=== PATIENT | male | born 1950 | race Caucasian/White ===

== ENCOUNTER 2020-07-06 12:51 | Outpatient (CLI) | payer MEDICARE, SELFPAY ==
--- NOTE | ~2020-07-06 | MR_ITS ---
EXAMINATION: MR shoulder RT wo con DATE: 07/06/2020 13:56 INDICATION: Right shoulder pain. TECHNIQUE: Magnetic resonance imaging (MRI) of the right shoulder was performed without intravenous c ontrast. Sequences included axial PD-weighted FS FSE, coronal oblique PD-weighted FS FSE and T2-weigh tari FS FSE, and sagittal oblique T2-weighted FS FSE and T1-weighted FSE. COMPARISON: Right shoulder radiographs 06/29/2020 FINDINGS: Coracoacromial arch: The acromion undersurface is curved in morphology with anterior hook (type III). There is severe acro mioclavicular joint osteoarthritis including inferiorly directed osteophytes. There is mild subacromi al/subdeltoid bursitis. Rotator cuff: There is a full-thickness tear of anterior supraspinatus tendon measuring 12 mm anterior to posterior by 3.2 cm proximal to distal. There is articular sided partial-thickness tear of posterior supraspin atus tendon and infraspinatus tendon measuring 13 mm anterior to posterior by 2.9 cm proximal to dist al by 80% tendon thickness. Teres minor tendon is normal. There is a near full-thickness tear of subs capularis tendon. There is moderate fatty atrophy of superior aspect of subscapularis muscle belly. T here is degenerative cystic change in greater tuberosity. Biceps tendon and glenoid labrum: Biceps tendon is in bicipital groove. The intra-articular biceps tendon is not well evaluated. There is degeneration of the superior glenoid labrum without well-defined tear. Fluid: There is a small glenohumeral joint effusion. Bones/cartilage: The glenoid cartilage and humeral head cartilage are unremarkable. IMPRESSION: 1. Full-thickness rotator cuff tear. 2. Severe acromioclavicular joint osteoarthritis. 3. Mild subacromial/subdeltoid bursitis. 4. Small glenohumeral joint effusion. Reviewed, dictated and finalized at location A.
== END 2020-07-06 12:52 | disposition home or self-care (01) ==
PROVIDERS: Visit Provider Orthopaedic Surgery
DX: M75.101 Unspecified rotator cuff tear or rupture of right shoulder, not specified as traumatic (principal); M19.011 Primary osteoarthritis, right shoulder; M75.51 Bursitis of right shoulder; M25.411 Effusion, right shoulder
CPT/HCPCS: 73221

== ENCOUNTER 2022-12-27 13:52 | Outpatient (CLI) | payer MEDICARE, SELFPAY ==
[2022-12-27 15:29] LABS: Albumin Level 5.2 g/dL (3.5-5.1)
[2022-12-27 15:31] LABS: Basophils Absolute Auto 0.1 K/mm3 (0.0-0.1); Basophils Percent Auto 0.7 % (0.2-1.2); Eosinophils Absolute Auto 0.2 K/mm3 (0-0.3); Eosinophils Percent Auto 2.8 % (0-4.4); Hematocrit 44.4 % (42.0-52.0); Hemoglobin 14.5 g/dL (14.0-18.0); Immature Granulocyte Absolute 0.04 K/mm3 (0.00-0.031); Immature Granulocyte Percent A 0.5 % (0-0.5); Lymphocytes Percent Auto 11.8 % (18.3-44.2); Mean Corpuscular HGB Conc 32.7 g/dl (32-36); Mean Corpuscular Hemoglobin 30.2 pg (26-34); Mean Corpuscular Volume 92.5 fl (80-100); Mean Platelet Volume 10.1 fl (7.4-10.4); Monocytes Absolute Auto 0.7 K/mm3 (0.1-0.6); Monocytes Percent Auto 8.6 % (2.6-8.5); Neutrophils Absolute Auto 6.4 K/mm3 (1.3-6.7); Neutrophils Percent Auto 75.6 % (45.5-73.1); Platelet Count Result 166 k/mm3 (150-375); Red Cell Distribution Width 13.2 % (11.5-14.5); White Blood Count 8.5 K/mm3 (4.5-10.0)
[2022-12-27 15:32] LABS: Estimated Glomerular Filt Rate 60; Glucose 106 mg/dL (65-110)
[2022-12-27 15:34] LABS: Hemoglobin A1C 4.8 % (<5.7)
[2022-12-27 16:40] LABS: Urine Cotinine NEGATIVE
== END 2022-12-27 13:53 | disposition home or self-care (01) ==
PROVIDERS: Anesthesiology; Visit Provider Orthopaedic Surgery
DX: M16.11 Unilateral primary osteoarthritis, right hip (principal); Z01.818 Encounter for other preprocedural examination
CPT/HCPCS: 80307; 82040; 82565; 82947; 83036; 85025; 87081

== ENCOUNTER 2023-01-22 00:33 | Day surgery (SDC) | payer MEDICARE, SELFPAY ==
[2022-12-27 14:08] VITALS: BMI 29.2
--- NOTE | 2022-12-27 14:32 | PC.NURSE ---
Report to the Outpatient Waiting Room, entrance under the green pavilion located off [facility], at time __0830 on date _01/22/23 . Planned Procedure Time: _1030 . Time changes happen often and if your time is changed the preop area will call you the afternoon before. - You and your visitor will be asked to self-screen and do not enter if you have any COVID symptoms. - A mask is optional within the hospital at this time. Patients may have clear liquids (water, carbonated beverages, clear teas, apple juice) until 3 hours prior to surgery with a maximum of 20 ounces. - No food from midnight until time of surgery - Infants may have breast milk until 4 hours before surgery, infant formula 6 hours prior to surgery. - Children will be allowed to drink immediately following surgery. If applicable, please bring a bottle or sippy cup to assist with drinking. Juice, water, soda, and popsicles are readily available. For infants on formula, please bring formula the day of surgery. Pacifiers are allowed. Take the following medications with a SIP of water the morning of surgery: ____METOPROLOL DO NOT STOP ANY OF YOUR OTHER PRESCRIPTION MEDICATIONS PRIOR TO SURGERY ?EXCEPT THE FOLLOWING Medications to discontinue per physician __ALL VITAMINS AND SUPPLEMENTS 3 DAYS PRE OP.LAST DOSE 01/18/23 Please no make-up, nail ku[place]i, hairspray, perfume, deodorant, or body powder the day of surgery. No jewelry (including any body piercings) or valuables the day of surgery, leave them at home. Please take a shower or bath the night before, or the morning of, surgery with an antibacterial soap. Wear comfortable, loose fitting clothing. Children are encouraged to wear pajamas. - Jewelry must be removed prior to entering the operating room. Rings and piercings that are not removed may be cut off. - The hospital will not accept responsibility for valuables. - Please leave all valuables, including medications, at home the day of surgery. If you are going home after surgery, a licensed tow motor driver must drive you home. - NO public transportation without another adult if you receive anesthesia. - We recommend that an adult stay with you for 24 hours following discharge. - We also recommend that you do not drive, make important decision, drink alcoholic beverages, or take any drugs that were not prescribed by your health care provider for at least 24 hours after your discharge time. For Pediatric surgeries, we recommend two adults accompany the child home. Follow any additional instructions given to you from your surgeon. If you or anyone in your household have experienced Covid symptoms in the past week, please notify your surgeon or the nurse liaison at the phone number below for possible testing. VERBAL AND WRITTEN instructions given to __PATIENT and asked if any additional questions and then verbalized understanding. Patient advised to call surgeon office or pre surgery nurse liaison [phone] if any additional questions.
[2022-12-27 14:56] VITALS: BP 165/84; PULSE 68; RESP 18; TEMP 36.6; O2SAT 99
[2023-01-22] VITALS (17 sets, daily range): BP systolic 115–175; BP diastolic 36–86; PULSE 57–71; RESP 12–61; TEMP 35.7–36.3; O2SAT 95–100
--- NOTE | ~2023-01-22 | XR_ITS ---
EXAMINATION: XR hip RT min 2V DATE: 01/22/2023 12:52 INDICATION: Postoperative evaluation following right total hip arthroplasty TECHNIQUE: Anteroposterior and lateral views of the right hip were obtained. COMPARISON: 10/24/2022 FINDINGS: Interval placement of a noncemented right total hip arthroplasty which appears well seated in near an atomic alignment. Expected subcutaneous gas in the postoperative bed. No fractures identified. IMPRESSION: 1. Right total hip arthroplasty, negative for postoperative purposes. Reviewed, dictated and finalized at location A. NE ELECTRICIAN APPRENTICE
[2023-01-22] MEDS: LACTATED RINGERS 1,000 ML 30 ML IV CONT ×2 (09:25→12:36)
[2023-01-22] MEDS: ACETAMINOPHEN 500 MG TABLET 1000 MG PO ×2 (09:25→17:18)
[2023-01-22] MEDS: TRANEXAMIC ACID 1,000MG/ISO100 1,000 MG/100 ML BAG 200 MG IVPB (09:25)
--- NOTE | 2023-01-22 09:50 | WPDHPUPDATE1 ---
History and Physical Update Update Date/Time: 01/22/23 09:50 History and Physical has been reviewed, including an updated exam of the patient. There are NO changes in the patient's condition. Risks, benefits, and alternatives have been discussed and questions answered. Patient agrees to proceed with procedure.
--- NOTE | 2023-01-22 10:04 | WPDANESEPPF ---
Anes - Initial Pre Proc Eval Procedure: Operation Date: 01/22/23 10:30 Proposed Procedures p Right Total Hip Arthroplasty - Mk Meza MD Date/Time: 01/22/23 10:04 Surgeon: Mk Meza MD Pre Op Diagnosis: primary oa right hip Patient Data Age: 72 Gender: M Height: 1.63 m Weight: 76.2 kg Last Vital Signs Temp 96.9 F L 01/22/23 09:25 Pulse 57 L 01/22/23 09:25 Resp 14 01/22/23 09:25 BP 152/64 H 01/22/23 09:25 Pulse Ox 97 01/22/23 09:25 O2 Del Method Room Air 01/22/23 09:25 Allergies Allergy/AdvReac Type Severity Reaction Status Date / Time pneumococcal vaccine Allergy Severe Other Verified 01/22/23 09:37 Home Medications Medication Instructions Recorded Confirmed Type metoprolol tartrate 25 mg tablet 20 mg PO BID 05/30/20 01/22/23 History amlodipine 10 mg tablet 10 mg PO HS 12/27/22 12/27/22 History cholecalciferol (vitamin D3) 50 50 mcg PO DAILY 12/27/22 12/27/22 History mcg (2,000 unit) tablet lisinopril 20 mg tablet 20 mg PO DAILY 12/27/22 01/22/23 History omega 2-caq-lbq-fish oil 100 1 cap PO DAILY 12/27/22 12/27/22 History mg-160 mg-1,000 mg capsule (Fish Oil) rosuvastatin 10 mg tablet 10 mg PO HS 12/27/22 12/27/22 History aspirin 81 mg tablet,delayed 81 mg PO BID 14 days #28 tabs 01/22/23 Rx release meloxicam 15 mg tablet 15 mg PO DAILY #30 tabs 01/22/23 Rx oxycodone-acetaminophen 5 mg-325 1 - 2 tablet PO Q4-6H PRN pain #30 01/22/23 Rx mg tablet tabs Patient hx anesthesia problems: none Family hx anesthesia problems: none Results Review: All pre-operative results and documents have been reviewed as part of the pre-operative evaluation. [facility] Past Medical History Medical History Complete tear of right rotator cuff Hypertension Surgical History Surgical History History of heart surgery (~06/03/19) heart valve implant Family History Family History Father Lung cancer Social History Social History Smoking status: Never smoker Additional smoking assessment comments: DENIES ANY FORM OF TOBACCO USE Alcohol intake: never Substance use: current Substance use type: marijuana Last use: 12/26/22 Lack of Transportation: No Lack of Food: Never True Current Housing: I Have Housing Concerned About Future Housing: No Difficulty Paying Gas/Electric Bills: No Difficulty Paying for Meds: No Currently Unemployed: No Education: Trade/Vocational Certificate Difficulty w/ Childcare or Family Care: No Living arrangements: alone Spiritual care concerns: No Anes - Eval Final PreProcedure Day of Procedure 01/22/23 10:04 Patient weight: normal Heart: regular rate and rhythm Lungs: clear to auscultation Airway: Mallampati scale class II Neurological: alert and oriented Last oral intake: >/= 8 hours ASA classification: III Emergent: no Anesthetic plan: proceed Anesthesia type and monitoring: general ETT and standard monitoring Results Review: All pre-operative results and documents have been reviewed as part of the pre-operative evaluation. Informed Consent: The patient's anesthetic plan and its attendant risks and benefits were discussed with the patient/family/POA. Questions were solicited and answers provided to the satisfaction of the patient/family/POA.
[2023-01-22] MEDS: ceFAZolin 2 GM/D5W 50 ML 2 GM/50 ML BAG IVPB ×2 (10:16→17:25)
[2023-01-22] MEDS: fentaNYL CITRATE INJ (*CRX) 100 MCG/2 ML VIAL 25 MCG IV PUSH ×4 (12:51→13:05)
--- NOTE | 2023-01-22 14:04 | W.PM.PROC2 ---
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 Post-op Diagnosis Same Procedure Performed Right Total Hip Arthroplasty Surgeon Mk Meza MD Debrander Maritza Skaggs PA-C Anesthesia General Findings Collapse of the femoral head mildly. Specimen sent to pathology. Good bone quality. Small stature. Femur flexibly reamed. Description of Procedure The patient was given preoperative antibiotics. A general anesthetic was administered. The patient was carefully placed in the lateral decubitus position on the PEG board. The shoulders and hips were carefully positioned for component and leg length positioning reference. The hip was prepped and draped in the usual sterile fashion. A longitudinal incision was created over the posterior aspect of the greater trochanter. Careful dissection was brought down through the deep fascia with electrocautery. A minimally invasive optimized posterior approach to the hip was performed. The short external rotators and capsule were taken down in an L-shaped capsulotomy. The tissue was tagged for later repair using number 2 high strength suture. The femoral neck was measured and taken in situ. The femoral head was removed. The acetabulum was carefully exposed. The inferior capsule was released. The labrum was resected. The acetabulum was sequentially reamed to the intended cup size. The cup was impacted into position with excellent press-fit. Typical anatomic landmarks, including the bony contact points as well as the inferior transverse acetabular ligament were used to confirm cup positioning with preoperative templating. Attention was turned to the femur, which was carefully exposed. The hip was reamed and then broached sequentially. Excellent press-fit was obtained with the broach. The hip was trialed. Measurements were utilized, including the lesser trochanter as well as the center of the femoral head and the tip of the trochanter, and excellent assessment of the offset and leg lengths were confirmed. The real component was impacted into position. Trialing confirmed appropriate leg length and offset with soft tissue balancing as well apparent feel of the leg, both at the knee and the heel. Soft tissues were assessed using the the iliotibial band. Reduction of the posterior capsule and external rotators were also used as a secondary assessment. The hip was copiously irrigated with pulsatile lavage antibiotic solution periodically throughout the procedure. The real components were then assembled and reduced. The hip was stable throughout typical maneuvers, including extension, external rotation to 70 degrees, the position of sleep as well as flexion to 90 degrees with internal rotation past 35 degrees. The shake test confirmed stability without impingement. Osteophytes were removed as necessary. The short external rotators and capsule were repaired back to the posterior trochanter through drill holes. The deep fascia was repaired with running number 2 Quill suture, followed by 0 Stratafix suture and 2-0 Stratafix suture in the dermis. Steri-Strips were placed on the skin, followed by a sterile silver occlusive dressing. There were no complications. Meticulous hemostasis was maintained with the AquaMantys device. The patient was brought to the recovery room in stable condition. There were no complications. Physician railway yard assistant, Maritza Skaggs PA-C, required for surgery; including patient positioning, draping, tissue retraction, maintaining instrument position, hip dislocation/ relocation, wound closure, and dressing placement. Implants The Accolade II hip stem, 127 degree size 3 , was utilized with excellent press-fit. The 50 mm Trident II acetabular component was impacted with excellent press-fit stability. The +0, [36] mm Biolox ceramic femoral head was utilized. Estimated Blood Loss -100.0 Drains No Packing No Pa
[2023-01-22] MEDS: ONDANSETRON INJ 4 MG/2 ML VIAL IV PUSH (14:54)
--- NOTE | 2023-01-22 17:00 | ADMGEN ---
This patient, Omar Carter, was admitted to [facility] Surg Room 310-01. Patient/family oriented to hospital policies and general routines including ID bracelet, bed and alarms, visiting hours, pain management, procedures, bathroom and other care routines, personal items, smoking policy, room service/diet, and visiting hours. Information on how to activate the Rapid Response Team has been discussed. Patient/Family are encouraged to report perceived risks to care and to ask questions if they do not understand what they are told or what they should do.
[2023-01-22] MEDS: SENNA/DOCUSATE SODIUM TABLET 2 TAB PO (17:18)
[2023-01-22] MEDS: MELOXICAM 7.5 MG TABLET PO (17:19)
[2023-01-22] MEDS: ASPIRIN 81 MG ENTERIC TABLET PO (17:25)
[2023-01-22] MEDS: METOPROLOL TARTRATE 25 MG TABLET PO (17:28)
[2023-01-22] MEDS: amLODIPine BESYLATE 5 MG TABLET 10 MG PO (21:54)
[2023-01-22] MEDS: ROSUVASTATIN 10 MG TABLET PO (21:55)
[2023-01-22] MEDS: FAMOTIDINE 20 MG TABLET PO (21:55)
[2023-01-23] VITALS: BP 127/67; PULSE 61; RESP 20; TEMP 36.1; O2SAT 100
[2023-01-23] MEDS: ACETAMINOPHEN 500 MG TABLET 1000 MG PO (00:10)
[2023-01-23] MEDS: ceFAZolin 2 GM/D5W 50 ML 2 GM/50 ML BAG IVPB ×2 (02:40→09:22)
[2023-01-23 06:00] VITALS: BP 178/72; PULSE 73; RESP 16; TEMP 36.6; O2SAT 98
[2023-01-23 06:08] LABS: Basophils Percent Auto 0.2 % (0.2-1.2); Eosinophils Percent Auto 0.1 % (0-4.4); Hematocrit 40.2 % (42.0-52.0); Hemoglobin 13.1 g/dL (14.0-18.0); Immature Granulocyte Absolute 0.09 K/mm3 (0.00-0.031); Immature Granulocyte Percent A 0.7 % (0-0.5); Lymphocytes Absolute Auto 0.81 K/mm3 (0.9-3.2); Lymphocytes Percent Auto 6.1 % (18.3-44.2); Mean Corpuscular HGB Conc 32.6 g/dl (32-36); Mean Corpuscular Hemoglobin 30.1 pg (26-34); Mean Corpuscular Volume 92.4 fl (80-100); Mean Platelet Volume 10.4 fl (7.4-10.4); Monocytes Percent Auto 7.3 % (2.6-8.5); Neutrophils Absolute Auto 11.4 K/mm3 (1.3-6.7); Neutrophils Percent Auto 85.6 % (45.5-73.1); Platelet Count Result 157 k/mm3 (150-375); Red Blood Count 4.35 M/mm3 (4.6-6.20); Red Cell Distribution Width 13.6 % (11.5-14.5); White Blood Count 13.3 K/mm3 (4.5-10.0)
[2023-01-23] MEDS: lisinopriL 20 MG TABLET PO (06:15)
[2023-01-23] MEDS: METOPROLOL TARTRATE 25 MG TABLET PO (06:15)
[2023-01-23 06:19] LABS: Anion Gap 9 mmol/L (8-16); Blood Urea Nitrogen 23 mg/dL (9-20); Calcium 9.5 mg/dL (8.4-10.2); Carbon Dioxide 23 mmol/L (22-30); Chloride 103 mmol/L (98-107); Estimated CRCL calculation 39 ml/min; Estimated Glomerular Filt Rate 54; Glucose 112 mg/dL (65-110); Potassium 5.2 mmol/L (3.4-5.0); Sodium 135 mmol/L (137-145)
--- NOTE | 2023-01-23 08:28 | PM.DS ---
DS: Admitting Diagnosis Discharge Date 01/23/23 Admitting Diagnosis OA Right hip DS: Discharge Diagnosis Discharge Diagnosis (1) Status post total hip replacement, right: Code(s): Z96.641 - Presence of right artificial hip joint Status: Acute Assessment and Plan: Postop day 1: Total hip arthroplasty. Patient tolerated procedure well. No complications. Pain manageable with pain medication. No numbness or tingling. We had a lengthy discussion regarding postoperative wound care, limitations, expectations, and exercises. Patient shows good understanding. Patient has had initial physical therapy and is tolerating it well. DVT prophylaxis: 81 mg baby aspirin b.i.d. for 14 days. Short frequent walks. Pain medication: Percocet. Meloxicam. Patient has followup appointment with Dr. Meza in 3 weeks DS: Summary Hospital Course Reason for hospitalization: Total hip arthroplasty Hospital Course: Patient tolerated procedure well. Has had initial PT/OT and made good progress. Status at Discharge Functional status at discharge: uses cane/walker Overall status at discharge: patient is progressing back to baseline Time Spent with Patient Time attestation: Total time spent providing and/or coordinating discharge services: Exam Narrative: 72 y/o male. Resting comfortably in bed. Wearing compression socks bilaterally. Dressing dry and intact with no drainage. Mild swelling. No ecchymosis. No erythema. No hematoma. Range of motion limited due to pain. Calf nontender. Thigh nontender. Neurologic status intact. No varicosities. Distal pulses palpable. DS: Data Data Completed and Pending Pending studies at discharge: Pending at discharge 01/22/23 11:05 Surgical [PTH] Routine Labs on day of discharge: Labs from last 24 hours 01/23/23 01/22/23 05:55 08:59 WBC 13.3 H RBC 4.35 L Hgb 13.1 L Hct 40.2 L MCV 92.4 MCH 30.1 MCHC 32.6 RDW 13.6 Plt Count 157 MPV 10.4 Immature Gran % (Auto) 0.7 H Neut % (Auto) 85.6 H Lymph % (Auto) 6.1 L [place] % (Auto) 7.3 Eos % (Auto) 0.1 Baso % (Auto) 0.2 Lymph # (Auto) 0.81 L [place] # (Auto) 1.0 H Eos # (Auto) 0.0 Baso # (Auto) 0.0 Abs Immat Gran (auto) 0.09 H Absolute Neuts (auto) 11.4 H Absolute Nucleated RBC 0.0 Nucleated RBC % 0.0 Sodium 135 L Potassium 5.2 H Chloride 103 Carbon Dioxide 23 Anion Gap 9 BUN 23 H Creatinine 1.30 Estim Creat Clear Calc 39 Estimated GFR 54 L Glucose 112 H Calcium 9.5 Blood Type O Positive Antibody Screen Negative Discharge Plan Discharge Patient Disposition: Home, Self-Care Discharge Instructions: See green instruction sheets Patient Instructions: Joint Replacement Surgery (DC) Stand Alone Forms: General Discharge Instructions Follow-up/Referrals: Maritza Skaggs PA [Physician Project Analyst] - Discharge Medications: New meloxicam 15 mg tablet 15 mg PO DAILY Qty: 30 0RF Rx Instructions: Cut in half. Take 1/2 in morning and 1/2 at night. Take with food. Stop if stomach upset. aspirin 81 mg tablet,delayed release (DR/EC) 81 mg PO BID 14 Days Qty: 28 0RF oxycodone-acetaminophen 5-325 mg tablet 1 - 2 tablet PO Q4-6H MDD 6 PRN (Reason: pain) Qty: 30 0RF Continued metoprolol tartrate 25 mg tablet 20 mg PO BID Fish Oil 100-160-1,000 mg capsule 1 cap PO DAILY rosuvastatin 10 mg tablet 10 mg PO HS lisinopril 20 mg tablet 20 mg PO DAILY amlodipine 10 mg tablet 10 mg PO HS cholecalciferol (vitamin D3) 50 mcg (2,000 unit) Tablet 50 mcg PO DAILY
[2023-01-23] MEDS: ASPIRIN 81 MG ENTERIC TABLET PO (09:22)
[2023-01-23] MEDS: CHOLECALCIFEROL 1,000 UNITS TABLET 2000 UNITS PO (09:22)
[2023-01-23] MEDS: OMEGA 3 POLYUNSAT FATTY ACIDS 1 GM CAP PO (09:22)
[2023-01-23] MEDS: MELOXICAM 7.5 MG TABLET PO (09:22)
[2023-01-23] MEDS: FAMOTIDINE 20 MG TABLET PO (09:23)
== END 2023-01-23 12:00 | disposition home or self-care (01) ==
LOC: ANHSURGERY 08:27 → ANH3MEDSUR 16:56
PROVIDERS: Physician Assistant Surgical; Visit Provider Orthopaedic Surgery
PROC: (CPT 27130; principal; 2023-01-22 10:30)
DX: M16.11 Unilateral primary osteoarthritis, right hip (principal); I10 Essential (primary) hypertension; E78.00 Pure hypercholesterolemia, unspecified; Z95.4 Presence of other heart-valve replacement; Z79.82 Long term (current) use of aspirin; F12.90 Cannabis use, unspecified, uncomplicated
CPT/HCPCS: 27130; 36415; 73502; 80048; 80307; 82040; 82565; 82947; 83036; 85025; 86850; 86900; 86901; 87081; 88307; 88311; 97110; 97161; 97165; A9270; C1769; C1776; J0171; J0690; J1100; J1170; J1885; J2250; J2270; J2405; J2704; J2795; J3010; J7120

== ENCOUNTER 2023-02-06 13:24 | Outpatient (CLI) | payer MEDICARE, SELFPAY ==
--- NOTE | ~2023-02-06 | XR_ITS ---
EXAMINATION: XR hip RT 2V w AP pelvis INDICATION: Aftercare following joint replacement surgery TECHNIQUE: AP view the pelvis and two views of the right hip are obtained on four radiographs. COMPARISON: 01/22/2023 FINDINGS: Bone alignment is normal. There is no fracture. There are changes of right hip arthroplasty . No hardware failure or loosening are identified there is mild osteoarthritis of the left hip. Calci fied atherosclerosis is noted. There is a phlebolith of the right pelvis. IMPRESSION: 1. Right hip arthroplasty without significant change or acute findings. Reviewed, dictated and finalized at location B. AND BEVERAGE OPERATIONS MANAGER
== END 2023-02-06 13:25 | disposition home or self-care (01) ==
PROVIDERS: Visit Provider Orthopaedic Surgery
DX: Z47.1 Aftercare following joint replacement surgery (principal)
CPT/HCPCS: 73502

== ENCOUNTER 2023-10-14 13:04 | Outpatient (CLI) | payer MEDICARE, SELFPAY ==
--- NOTE | ~2023-10-14 | XR_ITS ---
XR hip RT 2V w AP pelvis 10/14/2023 13:25 Indication: Right posterior hip pain. Procedure: Right hip pain Comparison: Comparison to multiple prior studies sequentially, with oldest reviewed study dated 01/19. Findings: There is a right total hip arthroplasty. No fracture or traumatic malalignment. Moderate eric mbar spondylosis. There is osteoarthritis of the left hip with subchondral sclerosis, suspicious for avascular necrosis. No acute fracture. Pelvic rings are intact. Impression: 1: No acute fracture. 2: Mild-moderate osteoarthritis of the left hip with possible avascular necrosis of the left femoral head. Reviewed, dictated and finalized at location B. Impression: 1: No acute fracture. 2: Mild-moderate osteoarthritis of the left hip with possible avascular necros is of the left femoral head.
== END 2023-10-14 13:05 | disposition home or self-care (01) ==
PROVIDERS: Visit Provider Orthopaedic Surgery
DX: Z96.641 Presence of right artificial hip joint (principal); M16.11 Unilateral primary osteoarthritis, right hip
CPT/HCPCS: 73502

== ENCOUNTER 2024-10-29 13:33 | Outpatient (CLI) | payer MEDICARE, SELFPAY ==
--- NOTE | ~2024-10-29 | MR_ITS ---
EXAMINATION: MR lumbar spine wo con DATE: 10/29/2024 14:13 INDICATION: Spinal stenosis, lumbar region without neurogenic claudication. TECHNIQUE: Magnetic resonance imaging (MRI) of the lumbar spine was performed without intravenous contrast. Sequences included sagittal T2-weighted FSE, sagittal T2-weighted FS FSE, sagittal T1-weighted FSE, and axial T2-weighted FSE. COMPARISON: None. FINDINGS: There is 5 degrees levocurvature of lumbar spine. There is 4 mm anterolisthesis of L4 on L5. There is mild chronic anterior wedging of T11 and T12 vertebral bodies. There are Schmorl's nodes at multiple levels. There is mildly decreased disc height at L1-L2 and L2-L3 and moderately decreased disc height at L3-L4, L4-L5, and L5-S1. There is ligamentum flavum hypertrophy at the disc levels from L1-L2 through L5-S1. The distal spinal cord signal intensity is normal. The conus medullaris is at L1-L2. The following disc levels are specifically discussed: L1-L2: The disc is bulging and has an annular fissure. There is severe bilateral facet joint osteoarthritis. There is mild bilateral neural foraminal stenosis. There is mild central canal stenosis. L2-L3: The disc is bulging and has an annular fissure. There is severe bilateral facet joint osteoarthritis. There is mild bilateral neural foraminal stenosis. There is mild central canal stenosis. L3-L4: The disc is bulging. There is severe bilateral facet joint osteoarthritis. There is moderate right and mild left neural foraminal stenosis. There is mild central canal stenosis. L4-L5: The disc is bulging and has an annular fissure. There is severe bilateral facet joint osteoarthritis. There is a 4 mm synovial cyst from right facet joint in the epidural space. There is mild right and moderate left neural foraminal stenosis. There is moderate central canal stenosis. L5-S1: The disc is bulging. There is severe bilateral facet joint osteoarthritis. There is mild right and moderate left neural foraminal stenosis. There is mild central canal stenosis. IMPRESSION: 1. Moderate lumbar spondylosis. Reviewed, dictated and finalized at location E.
--- OUTSIDE RECORDS SUMMARY | 2024-10-29 15:20 | XMS_ITS | Clinical Summary ---
Author Organization [facility] Address [address] [place] [address] Care Team Providers Care Speedometer Mechanic Name Role Phone Tani Cervantes MD Unavailable [phone] Lauren Castellano MD Primary Care Provider [phone] Allergies Active Allergy Reactions Criticality Noted Date Comments Pneumococcal Vaccine Unknown 07/02/2017 Medications omega 2-phj-nbr-fish oil 1,000 mg (120 mg-180 mg) capsule Take 1 capsule (1,000 mg total) by mouth daily 90 capsule 3 07/03/2019 Active cholecalciferol (VITAMIN D-3) 1,000 unit capsule Take 1 capsule (1,000 Units total) by mouth daily Active aspirin 81 mg enteric coated tablet Take 1 tablet (81 mg total) by mouth daily 30 tablet 09/29/2021 Active hydroCHLOROthia zide (HYDRODIURIL) 25 mg tablet Take 1 tablet (25 mg total) by mouth daily 07/06/2022 Active lisinopriL (PRINIVIL,ZESTR IL) 20 mg tablet Take 1 tablet (20 mg total) by mouth daily 07/17/2022 Active amLODIPine (NORVASC) 10 mg tablet TAKE 1 TABLET(10 MG) BY MOUTH DAILY 90 tablet 3 07/01/2023 Active metoprolol tartrate (LOPRESSOR) 25 mg immediate release tablet TAKE 1 TABLET(25 MG) BY MOUTH TWICE DAILY 180 tablet 3 06/23/2024 Active rosuvastatin (CRESTOR) 10 mg tablet TAKE 1 TABLET(10 MG) BY MOUTH DAILY 90 tablet 3 07/06/2024 Active Active Problems Problem Noted Date Diagnosed Date Preop cardiovascular exam 09/30/2021 Assessment & Plan (09/30/2021 11:48 AM CDT): He is currently doing quite well with respect to his heart disease. He is active without any symptoms. As such, I believe he can be cleared for his noncardiac surgery if his current EKG is unchanged. CAD in moapa artery 09/30/2021 Assessment & Plan (10/01/2023 4:36 PM CDT): Doing well without angina. The patient is aware of the need for Secondary prevention through aggressive CV risk factor modifications to include: blood pressure control, LDL control, daily exercise (per guidelines), and achieving and maintaining ideal body weight, etc. Assessment & Plan (09/28/2022 12:30 PM CDT): Doing well without angina. The patient is aware of the need for Primary prevention through aggressive CV risk factor modifications to include: blood pressure control, LDL control, daily exercise (per guidelines), and achieving and maintaining ideal body weight, etc. Assessment & Plan (09/30/2021 11:55 AM CDT): He has asymptomatic two-vessel coronary disease with 50% disease in the proximal RCA, OM1, and distal LAD. He also has an 80% RCA lesion just above the RPDA. Will continue guideline-directed medical therapy and aggressive CV risk factor modifications. For some reason, he discontinued aspirin and Lipitor. I have asked him to restart his aspirin 81 mg daily and Lipitor 10 mg daily with repeat FLP/AST in 3 months. The patient is aware of the need for Secondary prevention through aggressive CV risk factor modifications to include: blood pressure control, LDL control, daily exercise (per guidelines) and achieving and maintaining ideal body weight, etc. S/P TAVR (transcatheter aortic valve replacement ) 09/30/2021 Assessment & Plan (10/01/2023 4:38 PM CDT): Doing well with good TAVR function, He knows about and uses SBE prophylaxis when needed. Emphasized need for good dental hygiene. Assessment & Plan (09/28/2022 12:31 PM CDT): Doing well. He is aware of SBE prophylaxis. Assessment & Plan (09/30/2021 11:50 AM CDT): Has improved following the TAVR. We discussed at length the need for SBE prophylaxis as well as proper dental hygiene. He is not allergic to any antibiotics and he was told to use amoxicillin prior to dental work, to be prescribed by us, his PCP, or his dentist. GCA (giant cell arteritis) 09/30/2021 Assessment & Plan (10/01/2023 4:37 PM CDT): Per PCP. Seems quiescent at present. Assessment & Plan (09/28/2022 12:31 PM CDT): No recurrences. Assessment & Plan (09/30/2021 11:54 AM CDT): Per PCP, seems quiescent at present. Graves' disease 09/30/2021 Assessment & Plan (09/28/2022 12:31 PM CDT): Per PCP. Says he is euthyroid at present. Assessment & Plan (09/30/2021 11:54 AM CDT): Per PCP. Nonrheumatic aortic valve stenosis 05/29/2019 Essential hypertension 05/26/2019 Assessment & Plan (10/01/2023 4:37 PM CDT): The blood pressure has been under good control on current medications which will be continued. The patient is aware of the need for continued monitoring. Monitor home BP/Keep diary and bring to OV. Call if average BP >140/90 mmHg. Low sodium diet. Assessment & Plan (09/28/2022 12:26 PM CDT): The blood pressure has been under good control on current medications which will be continued. The patient is aware of the need for continued monitoring. Monitor home BP/Keep diary and bring to OV. Call if average BP >140/90 mmHg. Low sodium diet. Assessment & Plan (09/30/2021 11:52 AM CDT): The patient is aware of the need for continued monitoring. Monitor home BP/Keep diary and bring to OV. Call if average BP >140/90 mmHg. Low sodium diet. Dyslipidemia 05/26/2019 Assessment & Plan (10/01/2023 4:36 PM CDT): The LDL is well controlled on current pharmacotherapy which will be continued. Assessment & Plan (09/28/2022 12:30 PM CDT): Only takes Lipitor on and off. He needs to be compliant with LDL lowering medications. He had hip and shoulder injuries, but the pains were better off of Lipitor. Given moapa CAD, aggressive LDL lowering is warranted. Will try Crestor 10 mg every day. Recheck FLP/AST in 3 mos. Assessment & Plan (09/30/2021 11:52 AM CDT): His LDL has been at goal on Crestor which he will continue. 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 He says no FU in some time. Assessment & Plan (09/28/2022 12:25 PM CDT): Per PCP. Had Estella procedure 10 yrs ago. Assessment & Plan (09/30/2021 11:54 AM CDT): Per PCP and GI. Encounters Date Type Department Care Team Description 09/16/2024 Telephone [facility] Cardiology [address] [address], [place] [address] Boone Elias MD from Last 3 Months Surgical History Surgery Date Site/Laterality Comments UPPER GASTROINTESTINAL ENDOSCOPY Medical History Medical History Date Comments Faustin esophagus GERD (gastroesophageal reflux disease) Hypertension Graves disease Ischemic optic neuropathy of both eyes Giant cell arteritis syndrome Bi opsy inconclusive, followed by Fannie Ruiz MD at [facility] Hyperlipidemia Family History Medical History Relation Name Comments No Known Problems Father No Known Problems Mother Relation Name Status Comments Father Mother Social History Tobacco Use Types Packs/Day Years Used Date Smoking Tobacco: Never Smokeless Tobacco: Never Alcohol Use Standard Drinks/Week Comments No 0 (1 standard drink = 0.6 oz pur e alcohol) Sex and Gender Information Value Date Recorded Sex Assigned at Not on file Legal Sex Male 3:07 AM CUPROUS CHLORIDE HELPER Gender Identity Not on file Sexual Orientation Not on file Obstetrics History Last Filed Vital Signs Vital Sign Reading Time Taken Comments Blood Pressure 130/70 10/01/2023 4:17 PM CDT sandra e Pulse 62 10/01/2023 4:12 PM CDT Temperature 36.6 C (97.8 F) 06/04/2019 12:00 PM CDT Respiratory Rate 18 06/04/2019 12:00 PM CDT Oxygen Saturation 98% 10/01/2023 4:12 PM CDT Inhaled Oxygen Concentration - - Weight 79 kg (174 lb 2.6 oz) 10/01/2023 4:12 PM CDT Height 162.6 cm (5' 4) 10/01/2023 4:12 PM CDT Body Mass Index 29.9 10/01/2023 4:12 PM CDT Plan of Treatment Health Maintenance Due Date Last Done Comments Colon Cancer Screening-Colonoscopy 1950 Depression Screening 1950 Hepatitis C Screening 1950 Hepatitis B Screening 1968 Zoster Vaccine (1 of 2) 2000 Well Visit 65+ 12/23/2015 Pneumococcal vaccine 65+ (2 of 2 - PCV20 or PCV21) 11/23/2017 11/23/2016 DTaP/Tdap/Td Vaccine (2 - Td or Tdap) 11/10/2018 11/10/2008 Fall Risk Assessment 06/03/2020 06/04/2019 Covid-19 Vaccine (3 - 2024-2 6 season) 2024 07/22/2020, 06/24/2020 Influenza Vaccine (#1) 2024 4, 11/28/2020, 11/18/2019, Additional history exists Abdominal Aortic Aneurysm (A AA) Screen Completed 01/21/2017 Prostate Cancer Screening-PSA Discontinued 12/17/2023 Medical Devices Implanted Type Area Industrial Maintenance Mechanic Device Identifier Shelf Expiration Date Model / Serial / Lot [employer] [id number] Vascade 6/7fr Bioabsorbable Vascular System Compression Collagen - [id number] - [id number] Implanted:Qty: 1 on 06/03/2019 by Tani Cervantes MD at [facility] PDA Closure Device N/A: Heart [employer] 01/29/2021 [id number] / [id number] / [id number] Medtronic Inc Evproplus-26us Valve 26mm Aortic Evolut Pro+ - [id number] - [id number] Implanted:Qty: 1 on 06/03/2019 by Lc Davis MD at [facility] Prosthetic Valve N/A: Heart [employer] 11/20/2019 EVPROPLU S-26US / [id number] / [id number] Procedures Procedure Name Priority Date/Time Associated Diagnosis Comments PSA SCREEN Routine 12/17/2023 2:52 PM CDT CTA ABDOMINAL AORTA AND BILATERAL ILIOFEMORAL RUNOFF Routine 01/21/2017 5:08 PM CUPROUS CHLORIDE HELPER from Last 3 Months or Most Recently Relevant to Health Maintenance Results * PSA screen (12/17/2023 2:52 PM CDT) PSA-Total 1.63 <=6.20 ng/mL Comment: Interpretive Data AGE SEX REFERENCE INTERVAL 0 minutes-150 years Female None 0 minutes-49 years Male None 50-59 years Male 0-3.90 60-69 years Male 0-5.40 70-79 years Male 0-6.20 80-150 years Male 0-6.20 The Natalio PSA Total assay procedure was used. Results from different manufacturers or methods may not be comparable. Serial testing should be performed using the same method. Current interpretive data last revised 21. Blood 12/17/2023 2:52 PM CDT 12/17/2023 7:53 PM CDT us Jennykrishna Tompkins[facility] BLOOD ORDERABLES Fi nal Result [facility] [address] Department [place] [address] * CTA Abdominal Aorta And Bilateral Iliofemoral Runoff (01/21/2017 5:08 PM CUPROUS CHLORIDE HELPER) Anatomical Region Laterality Modality Body Bilateral Computed Tomogra phy 01/21/2017 5:08 PM CUPROUS CHLORIDE HELPER Narrative 01/21/2017 8:[address] angiography of the chest and abdomen HISTORY: Blurred vision. Intermittent diplopia. Vasculitis. TECHNIQUE: Transaxial helical imaging was performed through the chest and abdomen during intravenous administration of 96 mL of Optiray 350. One and 3 mm images were reconstructed. Additionally, the raw 2-dimensional transaxial imaging data was transferred to a 3-D workstation for processing/review. CT angiogram findings: The thoracic and abdominal aorta are normal in caliber. Mild calcified and noncalcified atherosclerotic plaque is noted. There is no wall thickening to suggest a vasculitis. There is no dissection. The great vessels arise unremarkably from the aortic arch without stenoses and without areas of wall thickening to suggest vasculitis. The celiac axis, the SMA, and both renal arteries arise unremarkably without apparent stenoses or wall thickening. The CLAUDY is patent. CT angiogram impression: 1. Normal caliber thoracic and abdominal aorta. No dissection. 2. Mild calcified and noncalcified atherosclerotic plaque involving the thoracic aorta, predominantly at the arch, and the mid to distal abdominal aorta. 3. The great vessels arise normally from the aortic arch without stenoses. The main branch arteries arising from the abdominal aorta also demonstrate no stenoses. 4. No concentric areas of arterial wall thickening to suggest a vasculitis. CT thorax findings: There is a 5 mm pleural-based nodule seen in the lateral basal segment of the left lower lobe, too small to further characterize. Are there prior outside CT studies of the chest or abdomen available for comparison? If none are available and if clinically warranted, a follow-up CT of the chest could be considered in 12 months time per guidelines of the Fleischner Society. The lungs are otherwise essentially clear. No pleural effusions are evident. There are no enlarged hilar or mediastinal lymph nodes evident. A small hiatus hernia is present. CT thorax impression: 1. Tiny left lower lobe pulmonary nodule as discussed. 2. Small hiatus hernia. CT abdomen findings: There are 2 tiny hypodense lesion seen in segments 4B and 7 of the liver, perhaps simply cysts but not fully assessed secondary to their size and the arterial phase only images. Are there prior outside studies for comparison? The spleen, adrenal glands, and pancreas are unremarkable in appearance. There is a probable tiny exophytic cyst seen arising from the posterior aspect of the mid to lower right kidney measuring about 9 mm in diameter, too small to fully characterize. The kidneys are otherwise unremarkable. There are no enlarged retroperitoneal or mesenteric lymph nodes evident. Moderate scattered colonic diverticulosis is noted. There is no evidence of diverticulitis. The included portions of the bowel are otherwise unremarkable in appearance. Prominent degenerative facet changes are present in the mid to lower lumbar spine. CT abdomen impression: 1. Probable small right renal cyst as above. 2. Moderate scattered colonic diverticulosis. 3. Prominent degenerative facet changes in the mid to lower lumbar spine. 4. Suspected small hepatic cysts as above. Electronically signed by: Kadeem Schrader M.D. Radiologist: KADEEM SCHRADER MD Attending: POLA GRAY M.D. Requesting: POLA GRAY M.D. Requesting Requesting ID: [id number] Attending Attending ID: [id number] Completed Time: 01/21/2017 11:08 AM Dictated Time: N/A Transcribed Time: 01/21/2017 2:08 PM Signed by: KADEEM SCHRADER MD on 01/21/2017 2:08 PM Report To 1 ID: Report To 1 Name: , Report To 1 FAX: Report To 2 ID: Report To 2 Name: , Report To 2 FAX: Report To 3 ID: Report To 3 Name: , Report To 3 FAX: NextGen Order #: Procedure Note Miscellaneous, Not In File - 01/21/2017 CT angiography of the chest and abdomen HISTORY: Blurred vision. Intermittent diplopia. Vasculitis. TECHNIQUE: Transaxial helical imaging was performed through the chest and abdomen during intravenous administration of 96 mL of Optiray 350. One and 3 mm images were reconstructed. Additionally, the raw 2-dimensional transaxial imaging data was transferred to a 3-D workstation for processing/review. CT angiogram findings: The thoracic and abdominal aorta are normal in caliber. Mild calcified and noncalcified atherosclerotic plaque is noted. There is no wall thickening to suggest a vasculitis. There is no dissection. The great vessels arise unremarkably from the aortic arch without stenoses and without areas of wall thickening to suggest vasculitis. The celiac axis, the SMA, and both renal arteries arise unremarkably without apparent stenoses or wall thickening. The CLAUDY is patent. CT angiogram impression: 1. Normal caliber thoracic and abdominal aorta. No dissection. 2. Mild calcified and noncalcified atherosclerotic plaque involving the thoracic aorta, predominantly at the arch, and the mid to distal abdominal aorta. 3. The great vessels arise normally from the aortic arch without stenoses. The main branch arteries arising from the abdominal aorta also demonstrate no stenoses. 4. No concentric areas of arterial wall thickening to suggest a vasculitis. CT thorax findings: There is a 5 mm pleural-based nodule seen in the lateral basal segment of the left lower lobe, too small to further characterize. Are there prior outside CT studies of the chest or abdomen available for comparison? If none are available and if clinically warranted, a follow-up CT of the chest could be considered in 12 months time per guidelines of the Fleischner Society. The lungs are otherwise essentially clear. No pleural effusions are evident. There are no enlarged hilar or mediastinal lymph nodes evident. A small hiatus hernia is present. CT thorax impression: 1. Tiny left lower lobe pulmonary nodule as discussed. 2. Small hiatus hernia. CT abdomen findings: There are 2 tiny hypodense lesion seen in segments 4B and 7 of the liver, perhaps simply cysts but not fully assessed secondary to their size and the arterial phase only images. Are there prior outside studies for comparison? The spleen, adrenal glands, and pancreas are unremarkable in appearance. There is a probable tiny exophytic cyst seen arising from the posterior aspect of the mid to lower right kidney measuring about 9 mm in diameter, too small to fully characterize. The kidneys are otherwise unremarkable. There are no enlarged retroperitoneal or mesenteric lymph nodes evident. Moderate scattered colonic diverticulosis is noted. There is no evidence of diverticulitis. The included portions of the bowel are otherwise unremarkable in appearance. Prominent degenerative facet changes are present in the mid to lower lumbar spine. CT abdomen impression: 1. Probable small right renal cyst as above. 2. Moderate scattered colonic diverticulosis. 3. Prominent degenerative facet changes in the mid to lower lumbar spine. 4. Suspected small hepatic cysts as above. Electronically signed by: Kadeem Schrader M.D. Radiologist: KADEEM SCHRADER MD Attending: POLA GRAY M.D. Requesting: POLA GRAY M.D. Requesting Requesting ID: [id number] Attending Attending ID: [id number] Completed Time: 01/21/2017 11:08 AM Dictated Time: N/A Transcribed Time: 01/21/2017 2:08 PM Signed by: KADEEM SCHRADER MD on 01/21/2017 2:08 PM Report To 1 ID: Report To 1 Name: , Report To 1 FAX: Report To 2 ID: Report To 2 Name: , Report To 2 FAX: Report To 3 ID: Report To 3 Name: , Report To 3 FAX: NextGen Order #: Pola Gray MD IMG CT PROCEDURES Edited Re sult - Final from Last 3 Months or Most Recently Relevant to Health Maintenance Insurance [employer]ET[employer] MEDICARE T MEDICARE [facility] MEDIC[facility] Advance Directives For more information, please contact: [phone] * Full Code (Latest Code Status on File) Date Activated Date Inactivated Comments 06/03/2019 8:12 AM 06/04/2019 5:34 PM * Full Code Date Activated Date Inactivated Comments 05/25/2019 9:08 PM 05/28/2019 7:07 PM * Full Code Date Activated Date Inactivated Comments 07/03/2017 8:29 AM 07/03/2017 12:15 PM Care Teams Speedometer Mechanic Relationship Specialty Start Date End Date Lauren Castellano MD [address] [place] [address] PCP - General Internal Medicine 09/29/21 Tani Cervantes MD [address] [place] [address] Consulting Physician Cardiothoracic Surgery 05/28/19
--- OUTSIDE RECORDS SUMMARY | 2024-10-29 15:20 | XMS_ITS | Clinical Summary ---
Author Organization [facility] Address [address] [place] [address] Care Team Providers Care Internal Salesperson Name Role Phone Deirdre Hilario O AND M SUPERVISOR Primary Care Provider [phone] Allergies No known active allergies Medications amLODIPine (NORVASC) 10 MG tablet Take 1 tablet (10 mg total) by mouth daily. Active hydroCHLOROthia zide (HYDRODIURIL) 25 MG tablet Take 1 tablet (25 mg total) by mouth every morning. Active lisinopril (PRINIVIL) 20 MG tablet Take 1 tablet (20 mg total) by mouth daily. Active metoprolol tartrate (LOPRESSOR) 25 MG tablet Take 1 tablet (25 mg total) by mouth 2 (two) times daily. Active rosuvastatin (CRESTOR) 10 MG tablet Take 1 tablet (10 mg total) by mouth nightly at bedtime. Active Resolved Problems Problem Noted Date Diagnosed Date Resolved Date Altered mental status 06/15/20242024 Encounters Date Type Department Care Team Description 09/18/[address] [address] Sharmaine Molina, RMA Consult from Last 3 Months Social History Tobacco Use Types Packs/Day Years Used Date Smoking Tobacco: Never Smokeless Tobacco: Never Tobacco Cessation:Counseling Given: Not Answered [facility] Utilities Answer Date Recorded In the past 12 months has th e electric, gas, oil, or water company threatened to shut off services in your home? Patient unable to answer 06/16/2024 Humiliation, Afraid, Rape, a nd Kick questionnaire Answer Date Recorded Within the last year, have y ou been afraid of your partner or ex-partner? Patient unable to answer 06/16/2024 Within the last year, have y ou been humiliated or emotionally abused in other ways by your partner or ex-partner? Patient unable to answer 06/16/2024 Within the last year, have y ou been kicked, hit, slapped, or otherwise physically hurt by your partner or ex-partner? Patient unable to answer 06/16/2024 Within the last year, have y ou been raped or forced to have any kind of sexual activity by your partner or ex-partner? Patient unable to answer 06/16/2024 Overall Financial Resource Strain (CARDIA) Answe r Date Recorded How hard is it for you to pa y for the very basics like food, housing, medical care, and heating? Patient unable to answer 06/16/2024 Hunger Vital Sign Answer Date Recorded Within the past 12 months, y ou worried that your food would run out before you got the money to buy more. Patient unable to answer 06/16/2024 Within the past 12 months, t he food you bought just didn't last and you didn't have money to get more. Patient unable to answer 06/16/2024 PRAPARE - Transportation Answer Date Re corded In the past 12 months, has l ack of transportation kept you from medical appointments or from getting medications? Patient unable to answer 06/16/2024 In the past 12 months, has l ack of transportation kept you from meetings, work, or from getting things needed for daily living? Patient unable to answer 06/16/2024 Housing Stability Vital Sign Answer Brandon e Recorded In the last 12 months, was t here a time when you were not able to pay the mortgage or rent on time? Patient unable to answer 06/16/2024 In the past 12 months, how m any times have you moved where you were living? 0 06/16/2024 At any time in the past 12 m [facility], were you homeless or living in a correction (including now)? Patient unable to answer 06/16/2024 Sex and Gender Information Value Date Recorded Sex Assigned at Male 06/15/2024 9:14 AM CDT Legal Sex Male 5:52 PM CDT Gender Identity Not on file Sexual Orientation Not on file Last Filed Vital Signs Vital Sign Reading Time Taken Comments Blood Pressure 147/76 06/16/2024 3:38 PM CDT Pulse 73 06/16/2024 3:38 PM CDT Temperature 36.7 C (98.1 F) 06/16/2024 3:38 PM CDT Respiratory Rate 23 06/16/2024 3:38 PM CDT Oxygen Saturation 99% 06/16/2024 3:38 PM CDT Inhaled Oxygen Concentration - - Weight 75.9 kg (167 lb 5.3 oz) 06/16/2024 3:21 A M CDT Height 170.2 cm (5' 7) 06/15/2024 9:26 AM CDT Body Mass Index 26.21 06/15/2024 9:26 AM CDT Plan of Treatment Health Maintenance Due Date Last Done Comments Colorectal Cancer Screening Colonoscopy (10 Years) 1950 DTaP, Tdap and Td Vaccines (1 - Tdap) 1969 Pneumococcal Vaccine: 50+ Years (1 of 1 - PCV) 2000 Zoster Vaccines (1 of 2) 2000 Annual Medicare Wellness Visit 12/23/2015 COVID-19 Vaccine ( season) 2024 11/27/2022, 11/26/2021, 07/07/2021, Additional history exists RSV Immunization or 60+ Years (1 - 1-dose 75+ series) 2025 Hepatitis C Completed 12/26/2016 Meningococcal B Vaccine Aged Out No l onger eligible based on patient's age to complete this topic Meningococcal Vaccine Aged Out No steve theresa eligible based on patient's age to complete this topic RSV Immunizations Under 20 Months Aged Out No longer eligible based on patient's age to complete this topic Insurance [employer] Advance Directives * Full Code (Latest Code Status on File) Date Activated Date Inactivated Comments 06/15/2024 3:58 PM 06/16/2024 7:29 PM Care Teams Internal Salesperson Relationship Specialty Start Date End Date Deirdre Hilario NP [address] [place] [address] PCP - General Nurse Practitioner Family 09/18/24
--- OUTSIDE RECORDS SUMMARY | 2024-10-29 15:21 | XMS_ITS | Patient Health Record ---
Author Organization [facility] see Address [address] [place] [address] [address] [place] [address] Care Team Providers Care Electrician Manager Name Role Phone Gray, Hankhuma Primary Care Provider Jenny Gil Unavailable [phone] Allergies Allergen (clinical drug ingredient) Drug/Non Drug Allergy documented on EMR Reaction Allergy Type Onset Date Status Vaccine product containing Streptococcus pneumoniae antigen (medicinal product) Pneumococcal Vaccines Reaction: set off immune system Drug Allergy 01/05/2022 Active Results Component Value Reference Range Notes CBC w auto diff Reviewed date:12/18/2023 08:47:12 AM Interpretation: Performing Lab:[facility] , [facility]. [facility] [address] Notes/Report: WBC 7.6 3.8-9.9 K/cumm Hgb 15.0 13.0-17.5 g/dL Hct 46.4 38.9-50.3 % Platelet Ct 161 150-400 K/cumm MPV 10.1 9.1-12.3 fL RBC 4.95 4.30-5.80 M/cumm MCV 93.7 81.3-96.4 fL MCH 30.3 27.1-33.3 pg MCHC 32.3 32.3-35.7 g/dL RDW CV 14.1 11.1-14.9 % RDW SD 48.1 35.7-48.1 fL NRBC Abs Auto 0.00 0.00-0.01 K/cumm Comprehensive metabolic pane l (CMP) Reviewed date:12/18/2023 08:47:12 AM Interpretation: Performing Lab:[facility] , [address] [facility]. [facility] [address] Notes/Report: Sodium 141 135-145 mmol/L Plasma Potassium 4.8 3.3-4.9 mmol/L Chloride 101 97-110 mmol/L Total CO2 25 22-32 mmol/L Anion Gap 15 2-15 mmol/L BUN 19 6-25 mg/dL Creatinine 1.06 0.80-1.30 mg/dL Glucose 95 70-199 mg/dL Interpretive Data Fasting glucose >/= 126 mg/dl is diagnostic for diabetes. Fasting is defined as no caloric intake for at least 8 hours. Fasting glucose between 100 mg/dl to 125 mg/dl is diagnostic of prediabetes. In a patient with classic symptoms of hyperglycemia or hyperglycemic crisis, a random glucose >/= 200 mg/dl is diagnostic for diabetes. In the absence of unequivocal hyperglycemia, results should be confirmed by repeat testing. The classification and Diagnosis of Diabetes Diabetes Care 2021; 46: S19-S40. Current interpretive data was last revised 2022. Total Calcium 10.6 8.5-10.3 mg/dL Total Bilirubin 0.6 0.1-1.2 mg/dL Plasma Total Protein 8.1 6.5-8.5 g/dL Albumin 4.9 3.5-5.0 g/dL Alkaline Phosphatase 59 40-130 Units/L ALT 35 7-55 Units/L AST 35 10-50 Units/L Hemoglobin A1C Reviewed date:12/18/2023 08:47:12 AM Interpretation: Performing Lab:[facility] , [address] [place] [address]. [facility] [address] Notes/Report: Hemoglobin A1C 5.4 4.0-5.6 % Est Average Glucose 108 The ADA recommends reporting an estimated Average Glucose (eAG) with all Hemoglobin A1c results using the equation derived from a study of 507 normal and diabetic adults. Minority populations were underrepresented and children were not included. (Diabetes Care 31:6005-0368, 2008). The eAG is not equivalent to a fasting glucose. Lipid Panel Reviewed date:12/18/2023 08:47:12 AM Interpretation: Performing Lab:[facility] , [address] [place] [address]. [facility] [address] Notes/Report: Cholesterol 128 30-199 mg/dL Interpretive Data Ages < or = 19 years Acceptable: <170 mg/dL Borderline high: 170-199 mg/dL High: >or= 200 mg/dL Ages > or = 20 years Desirable: <200 mg/dL Borderline high: 200-239 mg/dL High: >or= 240 mg/dL Literature References: 1. Expert Panel on Integrated Guidelines for Cardiovascular Health and Risk Reduction in Children and Adolescents. Pediatrics 2011;128:S213 2. NCEP Expert Panel. Circulation 2004;110:227 Current Interpretive Data was last revised on 2017. Triglycerides 147 <=149 mg/dL Interpretive Data Ages < or = 9 years Acceptable: <75 mg/dL Borderline high: 75-99 mg/dL High: >or= 100 mg/dL Ages 10 to 20 years Acceptable: <90 mg/dL Borderline high: 90-129 mg/dL High: >or= 130 mg/dL Ages > or = 20 years Desirable: <150 mg/dL Borderline high: 150-199 mg/dL High: 200-499 mg/dL Very high: >or= 499 mg/dL Literature References: 1. Expert Panel on Integrated Guidelines for Cardiovascular Health and Risk Reduction in Children and Adolescents. Pediatrics 2011;128:S213 2. NCEP Expert Panel. Circulation 2004;110:227 Current Interpretive Data was last revised on 2017. HDL Cholesterol 41 >=40 mg/dL Interpretive Data Ages < or = 19 years Acceptable: >45 mg/dL Borderline low: 40-45 mg/dL Low: <40 mg/dL Ages > or = 20 years Desirable: >or= 60 mg/dL Low: <40 mg/dL Literature References: 1. Expert Panel on Integrated Guidelines for Cardiovascular Health and Risk Reduction in Children and Adolescents. Pediatrics 2011;128:S213 2. NCEP Expert Panel. Circulation 2004;110:227 Current Interpretive Data was last revised on 2017. LDL Cholesterol, calculated 62 <=129 mg/dL Interpretive Data Ages < or = 19 years Acceptable: <110 mg/dL Borderline high: 110-129 mg/dL High: >or= 130 mg/dL Ages > or = 20 years Optimal: <100 mg/dL Near optimal: 100-129 mg/dL Borderline high: 130-159 mg/dL High: >160 mg/dL Calculated using the Ke[place] LDL-C estimating equation. This equation was implemented on 2023. Prior to this date LDL-C was estimated using the Friedewald equation. Literature References: 1. Expert Panel on Integrated Guidelines for Cardiovascular Health and Risk Reduction in Children and Adolescents. Pediatrics 2011;128:S213 2. NCEP Expert Panel. Circulation 2004;110:227 3. Jassi Mena et al. ELSA Cardiol. 2019June 18;5(5):540-548. doi: 10.1001/[email or web address].2020.0013 Current Interpretive Data was last revised on 2023. Non-HDL Cholesterol 87 Interpretive Data Ages < or = 19 years Acceptable: <120 mg/dL Borderline high: 120-144 mg/dL High: >145 mg/dL Ages > or = 20 years When triglycerides are >200 mg/dL, Non-HDL cholesterol is a secondary target of therapy with treatment goals that are 30 mg/dL greater than the LDL cholesterol target. Literature References: 1. Expert Panel on Integrated Guidelines for Cardiovascular Health and Risk Reduction in Children and Adolescents. Pediatrics 2011;128:S213 2. NCEP Expert Panel. Circulation 2004;110:227 Current Interpretive Data was last revised on 2017. Cholesterol/HDL ratio 3 PSA, Screen Reviewed date:12/18/2023 08:47:12 AM Interpretation: Performing Lab:[facility] , [address] [place] [address]. [facility] [address] Notes/Report: PSA-Total 1.63 <=6.20 ng/mL Interpretive Data AGE SEX REFERENCE INTERVAL 0 [...] method. Current interpretive data last revised 21. TSH Reflex FT4 Reviewed date:12/18/2023 08:47:12 AM Interpretation: Performing Lab:[facility] , [address] [place] [address]. [facility] [address] Notes/Report: TSH ([place]) 0.76 0.30-4.20 mcIUnit/mL UA, reflex Micro to Culture Reviewed date:12/18/2023 08:47:12 AM Interpretation: Performing Lab:[facility] , [address] [place] [address]. [facility] [address] Notes/Report: Color, Ur Yellow Yellow Clarity, Ur Clear Clear Spec Grav, Ur 1.018 1.003-1.030 pH, Ur 7.0 Interpretive Data ?Urine pH is affected by diet, medications, systemic acid-base disturbances, and renal tubular function. pH may affect urinary stone formation. For example, urine pH below 6.0 may help reduce the tendency for calcium phosphate stones and pH greater than 6.0 may reduce the tendency for uric acid stone formation. Source: [facility] Current Interpretive Data was last revised on 2017 Protein, Ur Ql Trace Negative Glucose, Ur Ql Negative Negative Ketones, Ur Negative Negative Bilirubin, Ur Negative Negative Blood, Ur Negative Negative Urobilinogen, Ur <2.0 <2.0 mg/dL Nitrite, Ur Negative Negative Leukocyte Esterase, Ur Negative Negative UA reflex comment See Below Reflex con ditions for microscopic UA and culture not met. Vit D 25OH Reviewed date:12/18/2023 08:47:12 AM Interpretation: Performing Lab:[facility] , [address] [place] [address]. [facility] [address] Notes/Report: 25 Hydroxy Vitamin D 40 30-80 ng/mL Differential Automated Reviewed date:12/23/2023 01:11:36 PM Interpretation: Performing Lab:[facility] , [address] [place] [address]. [facility] [address] Notes/Report: Neut Abs 5.5 1.5-6.5 K/cumm ImmGran Abs 0.1 0.0-0.1 K/cumm Lymphocyte Abs 1.1 0.8-3.3 K/cumm [place] Abs 0.6 0.2-0.8 K/cumm Eos Abs 0.2 0.0-0.5 K/cumm Baso Abs 0.1 0.0-0.1 K/cumm Neut Pct 72.8 Interpretive Data Percent cell count reference ranges are not reported, since discordance with absolute values may lead to misinterpretation of CBC data. Current Interpretive Data was last revised on 2017. ImmGran Pct 0.8 Interpretive Data Percent cell count reference ranges are not reported, since discordance with absolute values may lead to misinterpretation of CBC data. Current Interpretive Data was last revised on 2017. Lymph Pct 14.5 Interpretive Data Percent cell count reference ranges are not reported, since discordance with absolute values may lead to misinterpretation of CBC data. Current Interpretive Data was last revised on 2017. [place] Pct 8.1 Interpretive Data Percent cell count reference ranges are not reported, since discordance with absolute values may lead to misinterpretation of CBC data. Current Interpretive Data was last revised on 2017. Eos Pct 2.9 Interpretive Data Percent cell count reference ranges are not reported, since discordance with absolute values may lead to misinterpretation of CBC data. Current Interpretive Data was last revised on 2017. Baso Pct 0.9 Interpretive Data Percent cell count reference ranges are not reported, since discordance with absolute values may lead to misinterpretation of CBC data. Current Interpretive Data was last revised on 2017. eGFR Reviewed date:12/23/2023 01:11:36 PM Interpretation: Performing Lab:[facility] , [address] [place] [address]. [facility] [address] Notes/Report: eGFR 75 >=60 mL/min/1.73 m2 Interpretive Data Reference Interval Normal >/= 90 mL/min/1.73m2 Mildly decreased* 60 - 89 mL/min/1.73m2 Mildly to moderately decreased 45 - 59 mL/min/1.73m2 Moderately to severely decreased 30 - 44 mL/min/1.73m2 Severely decreased 15 - 29 mL/min/1.73m2 Kidney Failure < 15 mL/min/1.73m2 *Relative to young adult level Estimated glomerular filtration rate is determined by the 2020 CKD-EPI equation recommended by the National Kidney Foundation (A Unifying Approach to GFR Estimation: Recommendations of the NKF-ASK Task Force on Reassessing the Inclusion of Race in Diagnosing Kidney Disease, JASN 2020). The CKD-EPI equation should not be used for patients with unstable renal function and has not been validated in children and those over 70. Current interpretive data was last reviewed 2020. Reason For Referral No Information Medications Medication SIG (Take, Route, Frequency, Duration) Notes Start Date End Date Status Metoprolol Tartrate 25 MG take 1 tablet (25 mg) by oral route once daily Oral 1 Active Fish Oil 100-160-1,000 mg take 1 capsule by oral route daily Oral 1 *Pick strength-form from [facility] for eRX* Active Rosuvastatin Calcium 10 MG Oral Active Vitamin D3 25 MCG (1000 UT) take 1 capsule by oral route daily Oral 1 Active hydroCHLOROthiazide 25 MG TAKE 1 TABLET( 25 MG) BY MOUTH EVERY DAY Oral Active Lisinopril 20 MG TAKE 1 TABLET(20 MG) BY MOUTH EVERY DAY; Duration: 90 Active Immunizations Vaccine Route Administration Date Status Comme nts COVID- Vaccine mRNA IM Intramuscular 12/17/2023 Administer ed Influenza high dose > 65 [facility] IM Intramuscular 11/09/2016 Administered Influenza high dose > 65 [facility] IM Intramuscular 12/17/2023 Administered Infuenza, trivalent, recombinant, preservative free IM Intramuscular 12/13/2014 Administered Pneumococcal conjugate PCV 13 IM Intramuscular 11/23/2016 Administered Tdap Unknown 11/10/2008 Administered migrated LegPatid= [id number] Date=11/10/2008 Vac= Tdap Social History Tobacco Use: Social History Observation Description Date Details (start date - stop date) Never Smoker NA - NA Tobacco Control (Standard) Question Answer Notes Tobacco use: Nonsmoker Problems Problem Type SNOMED Code ICD Code Onset Dates Problem Status W/U Status Risk Notes Problem Mixed hyperlipidemia (014042695) Mixed hyperlipidemia (E78.2) Active confirmed Problem Essential hypertension (23741033) Essential (primary) hypertension (I10) 06/21/19 06 Active confirmed lv plus echo 2005 Vital Signs Heart Rate 66 /min 12/17/2023 pt states he ch ecks bp at home and always normal Temperature 98 degrees Fahrenheit 12/17/2023 pt sta christi he checks bp at home and always normal Height-cm 165.1 cm 12/17/2023 pt states he ch ecks bp at home and always normal Oximetry 98 % 12/17/2023 pt states he ch ecks bp at home and always normal Blood pressure diastolic 72 mm Hg 12/17/2023 pt states he checks bp at home and always normal Weight-kg 80.36 kg 12/17/2023 pt states he ch ecks bp at home and always normal Height 65 in 12/17/2023 pt states he ch ecks bp at home and always normal Blood pressure systolic 166 mm Hg 12/17/2023 pt s obed he checks bp at home and always normal Weight 177.2 lbs 12/17/2023 pt states he ch ecks bp at home and always normal BMI 29.48 kg/m2 12/17/2023 pt states he ch ecks bp at home and always normal Encounters Encounter Location Date Provider Diagnosis [facility] [address] [place] [address] [place] [address] 12/17/2023 Jenny Gil Essential (primary) hypertension I10 ; Annual wellness visit Z00.00 ; Mixed hyperlipidemia E78.2 ; COVID-19 vaccine administered Z23 and Encounter for immunization Z23 [facility] [address] [place] [address] 12/18/2023 Lauren Castellano Assessments Encounter Date Diagnosis (ICD Code) Assessment Notes Treatment Notes Treatment Clinical Notes Section Notes 12/17/2023 Essential (primary) hypertension (ICD-10 - I10) lv plus echo 200512/17/2023 Annual wellness visit (ICD-10 - Z00.00) 12/17/2023 Mixed hyperlipidemia (ICD-10 - E78.2) 12/17/2023 COVID-19 vaccine administered (ICD-10 - Z23) 12/17/2023 Encounter for immunization (ICD-10 - Z23) 12/17/2023 Other BP high uncertain why he is not on the HCTZ which I will refill want him to take lisinopril 20 mg, HCTZ 25 mg and the metroprolol 25 mg check BP the next few weeks 3 times a week and call in with numbers. COVID and flu vaccine given today. 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 , Date of Onset: 12/19/2017; Diffuse osteoarthritis, Date of Onset: 0 03/11/2007 ; Gastroesophageal Reflux: nis sawyer fundoplication 2000 egd 2009 barretts no dysplasia, Date of Onset: 06/28/2004; 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
== END 2024-10-29 13:34 | disposition home or self-care (01) ==
PROVIDERS: Visit Provider Orthopaedic Surgery
DX: M48.061 Spinal stenosis, lumbar region without neurogenic claudication (principal); M47.896 Other spondylosis, lumbar region
CPT/HCPCS: 72148